=== PATIENT | female | born 1960 | race Asian ===

== ENCOUNTER → 2021-03-04 09:07 | Outpatient (CLI) | payer OTHER, SELFPAY ==
[2021-03-04 10:08] LABS: COVID19 -Nasal RAPID Negative (Negative)
== END ==
PROVIDERS: PCP Internal Medicine; Visit Provider Surgery
DX: Z01.812 Encounter for preprocedural laboratory examination (principal); Z20.822 Contact with and (suspected) exposure to COVID-19
CPT/HCPCS: 87635; C9803

== ENCOUNTER 2021-03-05 07:21 | Day surgery (SDC) | payer OTHER, SELFPAY ==
--- NOTE | 2021-03-05 | PATH_ITS ---
[facility] Accession Number: [id number] . 01 Material submitted: . PART A: colon - SIGMOID COLON POLYPS PART B: rectum - RECTAL POLYP . 02 Diagnosis: A. Sigmoid Colon Polyps, Biopsies: Hyperplastic polyp x2. Negative for dysplasia or malignancy. Additional step sections examined. . B. Rectal Polyp, Biopsy: Colonic mucosa with prominent benign lymphoid aggregate. Negative for dysplasia or malignancy. Additional step sections examined. MRV 03/10/2021 1408 Local . 02 Electronically signed: . Clint Harding MD, PhD, Pathologist NPI- [id number] . 01 Gross description: . Part A: SIGMOID COLON POLYPS: Received in formalin are 2 fragment(s) of carroll, soft tissue measuring 0.3 x 0.3 x 0.2 cm to 0.4 x 0.4 x 0.2 cm submitted entirely in 1 cassette(s) Part B: RECTAL POLYP: Received in formalin is 1 fragment(s) of carroll, soft tissue measuring 0.4 x 0.3 x 0.2 cm submitted entirely in 1 cassette(s) /JADA 03/06/2021 1940 Local . 02 Pathologist provided ICD-10: K63.5, K62.1 . 02 CPT . 253771, 853075 Performed at: 01 [facility] [address], [place], [place] [id number] MD Jose Fregoso MD Phone: [phone] Performed at: 02 [facility] [address] [place], [place] [id number] MD Estela Kerr MD Phone: [phone]
[2021-03-05] MEDS: LACTATED RINGERS 1,000 ML 84 ML IV ×2 (07:33→09:30)
[2021-03-05 07:41] VITALS: BP 117/67; PULSE 68; RESP 18; TEMP 36.9; O2SAT 97; BMI 30.2
--- NOTE | 2021-03-05 08:57 | PM.HP.1 ---
History of Present Illness History of Present Illness Date Patient Seen: 03/05/21 Time Patient Seen: 08:57 Chief complaint: SCREENING COLONOSCOPY Narrative: She has a personal history of colon polyps and a family history of colon cancer. She is due for colonoscopy. Patient History Medical History (Updated 03/05/21 @ 08:58 by Martin Mariscal MD) Diabetes Hyperlipemia Hypertension Hypothyroid Surgical History (Updated 01/09/21 @ 15:[address] MA) H/O craniotomy History of Hx of tonsillectomy Family & Social History Family History (Updated 01/09/21 @ 15:[address] MA) Mother Hypertension Stroke Sister Breast cancer Brother Diabetes mellitus Social History: household members family lives independently Yes Tobacco & Substance use: Smoking Status Never smoker alcohol intake current alcohol intake frequency holiday/special occasion Substance Use Type does not use Meds Home Medications and Allergies Home Medications Medication Instructions Recorded Confirmed Type aspirin 81 mg tablet,delayed 81 mg PO DAILY 01/09/21 03/05/21 History release levetiracetam 500 mg tablet 500 mg PO BID 01/09/21 03/05/21 History (Keppra) levothyroxine 25 mcg capsule 25 mcg PO DAILY 01/09/21 03/05/21 History losartan 25 mg tablet 25 mg PO DAILY 01/09/21 03/05/21 History metformin 500 mg tablet 500 mg PO BID 01/09/21 03/05/21 History rosuvastatin 20 mg tablet (Crestor) 20 mg PO DAILY 01/09/21 03/05/21 History Allergies Allergy/AdvReac Type Severity Reaction Status Date / Time albuterol AdvReac Intermediate Hypertensio Verified 03/05/21 07:35 n Exam Vital Signs (past 8 hours): - 03/05/21 07:41 Temperature 98.4 F Pulse Rate 68 Respiratory Rate 18 Blood Pressure 117/67 Pulse Oximetry 97 Oxygen Delivery Method Room Air Const General: comfortable HENMT Head: normal to inspection Eyes General: appearance normal, both eyes and all related structures Resp Effort & Inspection: normal respiratory effort Assessment & Plan Assessment and plan (1) Family history of colon cancer: Status: Acute Plan Colonoscopy today COVID-19 COVID-19 status: Negative Result date/Date tested (Pos, Neg/Pending): 03/04/21 Time Spent With Patient Critical Care time: I spent a total of [] minutes of critical care time on this patient's care today; this time is exclusive of procedural time.
[2021-03-05] MEDS: MIDAZOLAM 5 MG/5 ML VIAL IV (09:13)
[2021-03-05] MEDS: fentaNYL 250 MCG/5 ML INJ IV (09:13)
--- NOTE | 2021-03-05 09:33 | PM.OP.COLON ---
Operative Date/Time/Diagnoses Date of procedure: 03/05/21 Time of procedure: 09:33 Pre-op diagnosis: Family history of colon cancer and personal history of colon polyps Post-op diagnosis: same Procedure & Clinicians Study performed: Colonoscopy Same procedure as scheduled: Yes Surgeon: Martin Mariscal Procedure Notes SCOAP/Timeout: Yes Procedure in detail: Procedure: The patient was brought to the endoscopy suite, placed in left lateral decubitus position. The patient was connected to monitoring devices. A time-out was performed. Sedation was administered. Once the patient was adequately sedated, a digital rectal exam was performed and was normal. The scope was then inserted and advanced to the cecum where the appendiceal orifice was identified and photographed. The scope was then slowly withdrawn over greater than 6 minutes. Mucosa was thoroughly inspected. There were a few scattered right colon diverticula. There were 2 small polyps in sigmoid colon and 1 small polyp in the rectum removed with cold forceps. The scope was retroflexed in the rectum. There were no abnormalities other than internal hemorrhoids. The scope was straightened and removed. The patient was awakened and brought to recovery. Versed: 4 mg Fentanyl: 100 mcg EBL: 2 mL Findings: A few scattered right colon diverticula and to small polyps in the sigmoid and 1 small polyp in the rectum. Scope withdrawal time: 7 Sedation minutes: 16 Findings: divertiulosis and polyp(s) Post-procedure Recommendations: Will call with biopsy results Disposition: PACU
[2021-03-05 09:34] VITALS: BP 100/58; PULSE 77; RESP 11; TEMP 36.3; O2SAT 98
[2021-03-05 09:39] VITALS: BP 90/59; PULSE 81; RESP 12; O2SAT 99
[2021-03-05 09:44] VITALS: BP 94/57; PULSE 70; RESP 12; O2SAT 100
[2021-03-05 09:49] VITALS: BP 108/67; PULSE 72; RESP 12; TEMP 36.4; O2SAT 100
[2021-03-05 10:01] VITALS: BP 122/76; PULSE 78; RESP 22; TEMP 36.5; O2SAT 99
--- NOTE | 2021-03-05 10:28 | SUR.PHASEII ---
03/05/21- 1010-assumed care of patient. vss. po tolerated. abdomen soft. denies pain/nausea. 1015-IV discontinued. dressed self. ride called. 1020-patient discharge instructions finallized with patient . highlighted MD's number in case of emergency. Papers given to patient. up to bathroom,gait steady. 1025-Discharged to home with papers,belongings to car by wheelchair to personal ride.
== END 2021-03-05 10:25 | disposition home or self-care (01) ==
PROVIDERS: PCP Internal Medicine; Referring Provider Surgery; Visit Provider Surgery
PROC: 0DJD8ZZ Inspection of Lower Intestinal Tract, Via Natural or Artificial Opening Endoscopic (ICD-10-PCS; CPT 45378; principal; 2021-03-05 08:30)
DX: Z12.11 Encounter for screening for malignant neoplasm of colon (principal); Z80.0 Family history of malignant neoplasm of digestive organs; Z86.010 Personal history of colon polyps; K57.30 Diverticulosis of large intestine without perforation or abscess without bleeding; E11.9 Type 2 diabetes mellitus without complications; E78.5 Hyperlipidemia, unspecified; I10 Essential (primary) hypertension; E03.9 Hypothyroidism, unspecified; Z79.84 Long term (current) use of oral hypoglycemic drugs; K63.5 Polyp of colon
CPT/HCPCS: 45380; 99152; J2250; J3010

== ENCOUNTER 2023-09-28 13:56 | Day surgery (SDC) | payer OTHER, SELFPAY ==
--- NOTE | 2023-09-28 | PATH_ITS ---
[facility] Accession Number: [id number] No. of containers..01 Tissue . 01 Material submitted: . colon - TRANSVERSE COLON POLYP . 01 Diagnosis: TRANSVERSE COLON POLYP: Tubular adenoma. [facility] 09/30/2023 1053 Local . 01 Electronically signed: . Clint Harding MD, PhD, Pathologist NPI- [id number] . 01 Gross description: . TRANSVERSE COLON POLYP: Received in formalin is 1 fragment(s) of carroll, soft tissue measuring 0.2 x 0.2 x 0.1 cm submitted entirely in 1 cassette(s) /JADA 09/29/2023 0040 Local . 01 Pathologist provided ICD-10: D12.3 . 01 CPT . 877980 Specimen Comment: A courtesy copy of this report has been sent to [phone] Performed at: [address] [facility] [id number] MD Jose Fregoso MD Phone: [phone]
--- NOTE | 2023-09-28 14:47 | P.HP_ITS ---
History of Present Illness History of Present Illness Date Patient Seen: 09/28/23 Chief complaint: SDC Narrative: Family history of colon cancer in 2 brothers both of whom have . Also personal history of adenomatous polyps according to her though on the last colonoscopy 3 years ago there were no adenomatous polyps. [facility] Medical History (Updated 03/05/21 @ 08:58 by Martin Mariscal MD) Hyperlipemia Hypothyroid Diabetes Hypertension Surgical History (Updated 01/09/21 @ 15:[address] MA) History of Hx of tonsillectomy H/O craniotomy Family History (Updated 01/09/21 @ 15:[address] MA) Mother Hypertension Stroke Sister Breast cancer Brother Diabetes mellitus Social History (Updated 01/09/21 @ 15:[address] Holland MA) marital status: household members: family lives independently: Yes occupational status: employed Smoking Status: Never smoker second hand exposure: No alcohol intake: current Meds Home Medications and Allergies Home Medications Medication Instructions Recorded Confirmed Type aspirin 81 mg tablet,delayed 81 mg PO DAILY 01/09/21 09/28/23 History release levetiracetam 500 mg tablet 500 mg PO BID 01/09/21 09/28/23 History (Keppra) levothyroxine 25 mcg capsule 25 mcg PO DAILY 01/09/21 09/28/23 History rosuvastatin 20 mg tablet (Crestor) 20 mg PO DAILY 01/09/21 09/28/23 History Allergies Allergy/AdvReac Type Severity Reaction Status Date / Time albuterol AdvReac Intermediate Hypertensio Verified 09/28/23 14:32 n Exam Narrative Exam Narrative: Oropharynx free of lesions Chest clear to auscultation percussion Cardiac exam reveals no S3 or murmur Assessment & Plan Assessment & Plan narrative: Family history of colon cancer in 2 first-degree relatives and personal history of colon polyps need for follow-up colonoscopy. Risks, benefits, alternatives have been explained. If this test is negative would switch to a 5 year interval. Time-Based Coding :: [TOTAL MINUTES] spent with patient and on the chart (including review of chart, obtaining history, exam, reviewing outside data, placing orders, documenting exam and treatment plan, and counseling patient) on [DATE].
--- NOTE | 2023-09-28 14:48 | PM.OP.COLON ---
Operative Date/Time/Diagnoses Date of procedure: 09/28/23 Pre-op diagnosis: See indication and findings Procedure & Clinicians Study performed: Colonoscopy Indications: Family history of colon cancer in 2 first-degree relatives and personal history of colon polyps Surgeon: Bossman Borden Procedure Notes Procedure in detail: After informed consent was obtained the patient was placed in left lateral decubitus position. The video colonoscope was placed in the rectum and slowly advanced. This easily passed cecum. On slow withdrawal mucosa was carefully examined. The scope was removed. Patient tolerated procedure well. Blood loss none Complications none Sedation mac Findings 1. 6 mm semi pedunculated polyp in the midtransverse colon cold snared and removed completely 2. Otherwise negative colonoscopy to cecum Next colonoscopy for the patient should be in 5 years.
[2023-09-28] MEDS: LACTATED RINGERS 1,000 ML 42 ML IV (14:52)
[2023-09-28 14:53] VITALS: BP 132/93; PULSE 62; RESP 16; TEMP 36.5; O2SAT 100
[2023-09-28 15:17] VITALS: BP 117/89; PULSE 75; RESP 14; TEMP 36.8; O2SAT 96
[2023-09-28 15:22] VITALS: BP 120/85; PULSE 73; RESP 15; O2SAT 96
[2023-09-28 15:27] VITALS: BP 114/84; PULSE 72; RESP 13; O2SAT 96
[2023-09-28 15:33] VITALS: BP 104/79; PULSE 73; RESP 14; TEMP 36.7; O2SAT 98
[2023-09-28 15:37] VITALS: BP 116/82; PULSE 67; RESP 12; TEMP 36.9; O2SAT 98
== END 2023-09-28 15:53 | disposition home or self-care (01) ==
PROVIDERS: PCP Family Medicine; Referring Provider Internal Medicine Gastroenterology; Visit Provider Internal Medicine Gastroenterology
PROC: 0DJD8ZZ Inspection of Lower Intestinal Tract, Via Natural or Artificial Opening Endoscopic (ICD-10-PCS; CPT 45378; principal; 2023-09-28 15:00)
DX: Z12.11 Encounter for screening for malignant neoplasm of colon (principal); Z86.010 Personal history of colon polyps; Z80.0 Family history of malignant neoplasm of digestive organs; D12.3 Benign neoplasm of transverse colon
CPT/HCPCS: 45385; J2704

== ENCOUNTER → 2023-11-04 13:28 | Outpatient (CLI) | payer OTHER, SELFPAY ==
--- NOTE | 2023-11-04 13:29 | DI.ECHO.S_ITS ---
[facility] : : [address] : [address] : : [id number] : : Phone: [phone] Echocardiogram Report + + :Name: QIAN HI Study Date: 11/04/2023 Height: 61 in : :[facility] ReadingLocation: Weight: 150 lb : : Gender: Female BSA: 1.7 m2 : :: 1960 Age: 62 yrs BP: 113/83 mmHg: :Reason For Study: CARDIOMEGALY : :Ordering Physician: MARY, : :ANETA Performed By: Marquis Vergara : :Referring: ANETA GOLDEN : + + Interpretation Summary 1) Normal left ventricular thickness, size, wall motion, and systolic function (EF 55-60%). 2) Normal right ventricular size and function. 3) Aortic valve is not well seen. By continuity equation, there is mild aortic stenosis (valve area 1.4cm2, mean gradient 7mmHg), severity ratio 0.53). Similar findings on Echo 10/11/2016. 4) Compared to the Echo done 10/11/2016, no significant change. Procedure: A two-dimensional transthoracic echocardiogram with color flow and Doppler was performed. The study quality was technically adequate. Comparison is made with the echocardiogram of 10/11/2016. The patient was in normal sinus rhythm during the exam. The heart rate ranged between 62-69 bpm during the study. Left Ventricle: The left ventricle is normal in size and wall thickness. The ejection fraction is estimated to be 55-60%. Left ventricular systolic function appears normal without focal wall motion abnormalities. Right Ventricle: The right ventricle is normal size. The right ventricular systolic function is normal. Atria: The left atrial size is normal. Right atrial size is normal. The interatrial septum grossly appears intact with no obvious evidence for an atrial septal defect. Mitral Valve: The mitral valve is normal. There is no mitral valve stenosis. There is trace mitral regurgitation. Aortic Valve: The aortic valve is not well visualized. The aortic valve is grossly normal. There is no aortic valve stenosis. No aortic regurgitation is present. Tricuspid Valve: The tricuspid valve is not well visualized. The tricuspid valve is not well visualized, but is grossly normal. There is no tricuspid stenosis. No tricuspid regurgitation. Pulmonic Valve: The pulmonic valve is not well visualized. There is no pulmonic valvular stenosis. There is no pulmonic valvular regurgitation. Great Vessels: The aortic root is normal size. The dimensions of the ascending aorta are normal. The inferior vena cava was not visualized. Pericardium/ Pleura There is no pericardial effusion. There is no pleural effusion. MMode/2D Measurements & Calculations LVIDd: 3.7 cm LVOT diam: 1.9 cm LVIDs: 2.6 cm Ao root diam: 2.7 cm FS: 29.5 % asc Aorta Diam: 3.4 cm IVSd: 1.1 cm LVPWd: 1.0 cm LV burton. diameter/BSA (cm/m^2): 2.2 LV sys. diameter/BSA (cm/m^2): 1.6 LA A2 area: 11.9 cm2 RA long axis: 4.3 cm LA A4 area: 12.1 cm2 RA area: 10.1 cm2 LA length (vol): 4.4 cm RA vol: 20.2 ml LA vol: 27.8 ml RA : 12.1 ml/m2 LA vol index: 16.6 ml/m2 RVD1 (basal): 2.5 cm RVD2 (mid): 2.1 cm TAPSE: 1.9 cm Doppler Measurements & Calculations Ao V2 max: 163.5 cm/sec LVOT Max Michele: 86.2 cm/sec Ao V2 mean: 126.6 cm/sec LV V1 max P.0 mmHg Ao max P.7 mmHg LV V1 VTI: 18.7 cm Ao mean P.9 mmHg LINDSEY(I,D): 1.4 cm2 Ao V2 VTI: 35.2 cm LINDSEY(V,D): 1.4 cm2 sev ratio: 0.53 LINDSEY indexed to BSA (cm^2/m^2): 0.86 MV E max michele: 85.8 cm/sec PA V2 max: 89.0 cm/sec MV A max michele: 102.5 cm/sec PA V2 mean: 68.0 cm/sec MV E/A: 0.84 PA mean P.9 mmHg Med Peak E' Michele: 6.0 cm/sec PA pr(Accel): 32.8 mmHg E/E' med: 14.3 Lat Peak E' Michele: 7.9 cm/sec E/E' lat: 10.8 E/e' average: 12.6 MV dec time: 0.20 sec SV(LVOT): 50.6 ml Reading Physician:11:27 AM
--- NOTE | 2023-11-04 20:58 | DI.NM.S_ITS ---
DATE OF SERVICE: 11/04/2023 PROCEDURE: Exercise treadmill stress test without imaging. ORDERING PROVIDER: Dr. Clemente Golden. INDICATIONS: The patient is a 62-year-old hypertensive female with postural dizziness. FINDINGS: 1. The patient was able to exercise for 6 minutes 34 seconds on a standard Dhruv protocol suggesting mild-moderately reduced exercise capacity with an SABAS of +14%, achieving 7.0 METS. She had a normal heart rate and blood pressure response to exercise, achieving a maximum heart rate of 138 bpm (88% of her predicted maximum). Her resting blood pressure was 114/60 that increased to a maximum of 130/60 at peak exercise and falling to 120/64 in recovery. 2. She had no chest discomfort or anginal symptoms but had severe, limiting lightheadedness at peak exercise despite normal heart rate and blood pressure. 3. Her resting ECG showed sinus rhythm with an incomplete right bundle branch block but normal ST segments. With exercise, there is very slight ST sagging in the anterior leads, likely due to her conduction defect, but no significant ST-segment shifts to suggest ischemia. She had rare, isolated PVCs in recovery but no other arrhythmias. IMPRESSION: 1. Probable normal exercise treadmill stress test for ischemia with only very subtle, nonspecific ST sagging in the anterior leads with exercise, likely due to her conduction disease. 2. No angina or arrhythmias with stress. She had limiting lightheadedness despite normal heart rate and blood pressure. There were no arrhythmias. 3. Mild to moderately reduced exercise capacity. Suzie Reese - RS/[place]/AY doc#: [id number]/job#: [id number] dd: 11/04/2023 16:32:00 dt: 11/04/2023 20:09:00 DICTATING MD/COPIES TO: Ismael Al MD; Dr. Clemente Golden COPIES MNE: APRIL; ; Dr. Clemente Golden
== END ==
PROVIDERS: PCP Family Medicine; Referring Provider Internal Medicine Cardiovascular Disease; Visit Provider Internal Medicine Cardiovascular Disease
DX: R42 Dizziness and giddiness (principal); I51.7 Cardiomegaly; I10 Essential (primary) hypertension
CPT/HCPCS: 93017; 93306